=== PATIENT | female | born 1975 | race Hispanic/Latino ===

== ENCOUNTER 2016-11-14 01:45 | Emergency (ER) | payer BC ==
[~2016-11-14] VITALS: Ht 157.5 cm; Wt 76.2 kg
[2016-11-14 05:30] VITALS: BP 108/62
--- NOTE | 2016-11-14 07:29 | REP ---
Clinical: Dyspnea and cough . Comparison: None . Findings: The mediastinum and cardiac silhouette are stable and within normal limits for portable technique. The lung desai are clear without acute consolidation, effusion, or pneumothorax. Skeletal structures are intact. Impression: Normal portable chest x-ray Signed by Sameer Peter MD 11/14/2016 07:20 A
--- NOTE | 2016-11-14 14:41 | ECGEPIP ---
Stationary ECG Study [facility] - ED Test Date: 2016-11-14 Pat Name: RAY ROJAS Department: Room: - Gender: F [place]scre[place] Man: jesus : 1975 Requested By: LINDA Main Order Number: [id number] Reading MD: Moris Mckeon Measurements Intervals [place] Rate: 73 P: 28 PA: 144 QRS: 67 QRSD: 96 T: 33 QT: 424 QTc: 467 Interpretive Statements SINUS RHYTHM INC. RBBB NO PRIORS Electronically Signed On 11-14-2016 14:41:51 EDT by Moris Mckeon
== END 2016-11-14 06:00 | disposition home or self-care (01) ==
LOC: M ED 05:37
DX: R06.02 Shortness of breath (principal)

== ENCOUNTER 2017-05-08 21:59 | Emergency (ER) | payer BC, OTHER, SELFPAY ==
[~2017-05-08] VITALS: Ht 165.1 cm; Wt 77.3 kg
[2017-05-08 23:19] LABS: BASO % 0.4 % (0.0-1.0); EOS # 0.3 10^3/uL (0.0-0.50); IMMATURE GRANULOCYTE % 0.2 % (0-0); LYMPH # 4.1 10^3/uL (1.5-4.5); LYMPH % 43.4 % (24.0-44.0); MEAN CORPUSCULAR HEMOGLOBIN 28.5 pg (27.0-33.0); MEAN CORPUSCULAR HGB CONC 33.6 g/dl (32.0-36.5); MEAN CORPUSCULAR VOLUME 84.8 fl (80.0-96.0); MONO # 0.7 10^3/uL (0.0-0.8); MONO % 7.1 % (0.0-5.0); NEUTROPHILS # 4.3 10^3/uL (1.8-7.7); NEUTROPHILS % 45.9 % (36.0-66.0); PLATELET COUNT, AUTOMATED 330 10^3/uL (150-450); WHITE BLOOD COUNT 9.5 10^3/uL (4.0-10.0)
[2017-05-08 23:29] LABS: INR 0.98
[2017-05-08 23:50] LABS: ANION GAP 7 MEQ/L (8-16); BLOOD UREA NITROGEN 11 MG/DL (7-18); CALCIUM LEVEL 8.9 MG/DL (8.5-10.1); CARBON DIOXIDE LEVEL 27 MEQ/L (21-32); CHLORIDE LEVEL 106 MEQ/L (98-107); CREATININE FOR GFR 0.81 MG/DL (0.55-1.02); FREE T4 1.25 NG/DL (0.76-1.46); GLOMERULAR FILTRATION RATE > 60.0 (>58); GLUCOSE, FASTING 100 MG/DL (70-105); POTASSIUM SERUM 3.4 MEQ/L (3.5-5.1); SODIUM LEVEL 140 MEQ/L (136-145)
[2017-05-09] MEDS ORDERED: ASPIRIN 81 MG CHEW TABLET PO ONE (00:30)
[2017-05-09 03:39] VITALS: BP 137/83
--- NOTE | 2017-05-09 07:56 | REP ---
PA and lateral chest: Comparison is 11/14/2016. The lung desai are clear. The cardiac size is normal The [place], mediastinum, and bony thorax are unremarkable. Impression: Negative PA and lateral chest. Signed by Felix Farah MD 05/09/2017 07:47 A
--- NOTE | 2017-05-09 10:34 | ECGEPIP ---
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
--- NOTE | 2017-05-09 10:35 | ECGEPIP ---
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
== END 2017-05-09 04:12 | disposition home or self-care (01) ==
LOC: M ED 21:59
DX: R07.89 Other chest pain (principal)

== ENCOUNTER 2017-06-28 00:56 | Emergency (ER) | payer OTHER, SELFPAY ==
[~2017-06-28] VITALS: Ht 152.4 cm; Wt 72.7 kg
[2017-06-28 01:55] VITALS: BP 130/70
[2017-06-28 02:10] LABS: MEAN CORPUSCULAR HEMOGLOBIN 28.3 pg (27.0-33.0); MEAN CORPUSCULAR HGB CONC 32.8 g/dl (32.0-36.5); MEAN CORPUSCULAR VOLUME 86.3 fl (80.0-96.0); PLATELET COUNT, AUTOMATED 330 10^3/uL (150-450); RED CELL DISTRIBUTION WIDTH 14.2 % (11.5-14.5); WHITE BLOOD COUNT 8.2 10^3/uL (4.0-10.0)
[2017-06-28 02:26] LABS: CONTROL LINE HCG INT CTR LINE PRESENT
--- NOTE | 2017-06-28 02:40 | REPUSA ---
CLINICAL HISTORY: Headaches. TECHNIQUE: Multiple axial brain CT scan sections were obtained from base to vertex without contrast a dministration. COMMENTS: The study shows normal configuration of sella turcica. There are no intra or extra-axial collections. There is no mass effect or midline shift. There is no evidence of hematoma formation. No hydrocephal us is present. No abnormal calcifications are noted. No significant abnormalities are seen either in the posterior fossa or supratentorial compartment. The sinuses and mastoid air cells are patent. IMPRESSION: No evidence of acute intracranial pathology. Thank you for your kind referral of this patient.
[2017-06-28 02:49] LABS: ALBUMIN 3.5 GM/DL (3.2-5.2); ALKALINE PHOSPHATASE 97 U/L (45-117); ALT/SGPT 34 U/L (12-78); ANION GAP 6 MEQ/L (8-16); AST/SGOT 19 U/L (7-37); BILIRUBIN,DIRECT < 0.1 MG/DL (0.0-0.2); BILIRUBIN,TOTAL 0.3 MG/DL (0.2-1.0); BLOOD UREA NITROGEN 14 MG/DL (7-18); CALCIUM LEVEL 8.4 MG/DL (8.5-10.1); CARBON DIOXIDE LEVEL 27 MEQ/L (21-32); CHLORIDE LEVEL 107 MEQ/L (98-107); CREATININE FOR GFR 0.85 MG/DL (0.55-1.02); GLOMERULAR FILTRATION RATE > 60.0 (>58); GLUCOSE, FASTING 115 MG/DL (70-105); POTASSIUM SERUM 3.8 MEQ/L (3.5-5.1); SODIUM LEVEL 140 MEQ/L (136-145)
[2017-06-28 04:17] LABS: METHADONE URINE NEGATIVE (NEGATIVE)
--- NOTE | 2017-06-28 05:54 | ECGEPIP ---
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
--- NOTE | 2017-06-28 07:49 | REP ---
PA and lateral chest: Comparison is 05/08/2017. The lung desai are clear. The cardiac size is normal The [place], mediastinum, and bony thorax are unremarkable. Impression: Negative PA and lateral chest. There is no interval change. No Signed by Felix Farah MD 06/28/2017 07:41 A
== END 2017-06-28 05:44 | disposition home or self-care (01) ==
LOC: M ED 00:56
DX: R00.2 Palpitations (principal); R51 Headache; I45.19 Other right bundle-branch block

== ENCOUNTER 2017-07-14 13:11 | Emergency (ER) | payer OTHER | END 2017-07-14 15:43 | disposition home or self-care (01) | LOC: M ED 13:11 | DX: K04.7 Periapical abscess without sinus (principal); R03.0 Elevated blood-pressure reading, without diagnosis of hypertension; L30.9 Dermatitis, unspecified | CPT/HCPCS: 93005 ==